=== PATIENT | female | born 1985 | race Caucasian/White ===

== ENCOUNTER 2022-09-15 14:36 | Emergency (ER) | payer BC ==
[2022-09-15] MEDS ORDERED: Ondansetron 4 MG/2 ML SDV IVPUSH ONE (15:46)
[2022-09-15] MEDS ORDERED: Sodium Chloride 0.9% 10 ML Syringe FLUSH PRN (15:46)
[2022-09-15] MEDS ORDERED: HYDROmorphone 1 MG/ML Syringe IVPUSH STA (15:46)
[2022-09-15] MEDS ORDERED: Sodium Chloride 0.9% 1,000 ML IV SCH (15:47)
[2022-09-15] MEDS ORDERED: Iopamidol 612 MG/ML 100 ML Bottle IVPUSH ONE (16:06)
[2022-09-15] MEDS ORDERED: Sodium Chloride 0.9% 10 ML Syringe FLUSH ONE (16:06)
== END 2022-09-15 19:04 | disposition home or self-care (01) ==
LOC: JD.ED 14:36
DX: K42.9 Umbilical hernia without obstruction or gangrene (principal); N83.201 Unspecified ovarian cyst, right side; F17.210 Nicotine dependence, cigarettes, uncomplicated; Z90.49 Acquired absence of other specified parts of digestive tract
CPT/HCPCS: 36415; 74177; 80053; 81001; 81025; 83690; 85025; 86140; 96361; 96374; 99284; J1170; J2405; J3490; J7030; Q9967

== ENCOUNTER 2022-10-18 11:02 | Day surgery (SDC) | payer BC ==
[~2022-10-18 11:02] MED LIST: Lactated Ringers 1,000 ML IV SCH; Lidocaine 1%/Sod Bicarbonate in NS 8.4% 1 ML Syringe IDERM PRN; Sodium Chloride 0.9% 10 ML Syringe FLUSH PRN; Sodium Chloride 0.9% 10 ML Syringe FLUSH SCH
[2022-10-18] MEDS: Lactated Ringers 1,000 ML IV SCH (11:30)
[2022-10-18] MEDS ORDERED: HYDROmorphone 0.5 MG/0.5 ML Syringe IVPUSH PRN (11:36)
[2022-10-18] MEDS ORDERED: fentaNYL 100 MCG/2 ML SDV IVPUSH PRN (11:36)
[2022-10-18] MEDS ORDERED: fentaNYL 100 MCG/2 ML SDV ONE (11:55)
[2022-10-18] MEDS ORDERED: Midazolam 1 MG/ML 2 ML SDV ONE (11:55)
[2022-10-18] MEDS ORDERED: Propofol 200 MG/20 ML SDV ONE ×3 (11:55→13:54)
[2022-10-18] MEDS ORDERED: Rocuronium 50 MG/5 ML Vial ONE ×2 (11:56→13:29)
[2022-10-18] MEDS ORDERED: Lidocaine 1% 5 ML VIAL ONE (11:56)
[2022-10-18] MEDS: Acetaminophen 325 MG Tab PO SCH (12:41)
[2022-10-18] MEDS: Gabapentin 300 MG Cap PO SCH (12:41)
[2022-10-18] MEDS ORDERED: ceFAZolin 2 GM Vial ONE (13:07)
[2022-10-18] MEDS ORDERED: Ketorolac 15 MG/ML SDV ONE (13:07)
[2022-10-18] MEDS ORDERED: Dexamethasone 4 MG/ML 5 ML MDV ONE (13:07)
[2022-10-18] MEDS ORDERED: HYDROmorphone 0.5 MG/0.5 ML Syringe ONE (13:07)
[2022-10-18] MEDS ORDERED: Ondansetron 4 MG/2 ML SDV ONE (13:07)
[2022-10-18] MEDS: Lidocaine 1% 30 ML SDV ONE (13:11)
[2022-10-18] MEDS: Bupivacaine 0.5%/EPINEPHrine 1:200,000 50 ML MDV ONE (13:11)
[2022-10-18] MEDS ORDERED: Labetalol 100 MG/20 ML MDV ONE (13:29)
[2022-10-18] MEDS ORDERED: Sugammadex Sodium 200 MG/2 ML VIAL ONE (14:32)
[2022-10-18] MEDS: Ondansetron 4 MG/2 ML SDV IVPUSH PRN (15:08)
[2022-10-18] MEDS: Acetaminophen/oxyCODONE 325-5 MG Tab PO SCH (16:51)
== END 2022-10-18 17:10 | disposition home or self-care (01) ==
LOC: JD.SDS 11:02
PROVIDERS: ATTEND Surgery
DX: K43.2 Incisional hernia without obstruction or gangrene (principal); K42.9 Umbilical hernia without obstruction or gangrene; I10 Essential (primary) hypertension; G47.33 Obstructive sleep apnea (adult) (pediatric); K21.9 Gastro-esophageal reflux disease without esophagitis; G89.29 Other chronic pain; M54.9 Dorsalgia, unspecified; F17.200 Nicotine dependence, unspecified, uncomplicated; D64.9 Anemia, unspecified; G43.909 Migraine, unspecified, not intractable, without status migrainosus; Z90.49 Acquired absence of other specified parts of digestive tract; Z98.890 Other specified postprocedural states; Z79.899 Other long term (current) drug therapy; Z86.16 Personal history of COVID-19
CPT/HCPCS: 81025; A9270-GY; C1781; J0690; J1100; J1170; J1885; J2250; J2405; J2704; J3010; J3490; J7120